=== PATIENT | female | born 1980 | race Two or more races ===

== ENCOUNTER 2021-08-09 01:22 | Emergency (ER) | payer OTHER ==
[~2021-08-09] VITALS: Ht 167.6 cm; Wt 59.0 kg
== END 2021-08-09 04:04 | disposition home or self-care (01) ==
LOC: ER 01:22
DX: S01.02XA Laceration with foreign body of scalp, initial encounter (principal); W45.8XXA Other foreign body or object entering through skin, initial encounter; Y93.89 Activity, other specified; Y92.89 Other specified places as the place of occurrence of the external cause; Y99.8 Other external cause status